=== PATIENT | female | born 2000 | race Two or more races ===

== ENCOUNTER 2024-05-13 10:12 | Emergency (ER) | payer OTHER ==
[~2024-05-13] VITALS: Ht 149.9 cm; Wt 72.6 kg
[2024-05-13] MEDS ORDERED: PRENATAL + DHA1 EAC1 (10:38)
[2024-05-13] MEDS ORDERED: 0.9 % SODIUM CHLORIDE 1,000 ML IV ONE (11:30)
[2024-05-13] MEDS ORDERED: FAMOtidine 10 MG/ML (4ML VIAL) IV ONE (11:30)
[2024-05-13] MEDS ORDERED: ONDANSETRON HCL 2 MG/ML VIAL IV ONE (11:30)
[2024-05-13] MEDS ORDERED: FAMOTIDINE/PF 20 MG/2 ML VIAL ONE (11:35)
[2024-05-13] MEDS ORDERED: ONDANSETRON HCL 2 MG/ML VIAL ONE (11:35)
[2024-05-13 12:08] LABS: HEMATOCRIT 38.4 % (36.0-45.00); HEMOGLOBIN 12.9 g/dL (12.0-15.00); MEAN CELL VOLUME 93.2 fL (80.00-100.00); MEAN CORPUSCULAR HEMOGLOBIN 31.2 pg (27.00-32.0); MEAN CORPUSCULAR HGB CONC 33.4 g/dl (32.0-36.0); PLATELET COUNT 229 K/uL (150-450); RED BLOOD COUNT 4.13 M/uL (4.00-6.00); RED CELL DISTRIBUTION WIDTH 12.6 % (11.5-14.5)
[2024-05-13 13:23] LABS: ALBUMIN 3.6 gm/dL (3.4-5.0); BILIRUBIN TOTAL 0.44 mg/dL (0.3-1.2); CREATININE SERUM 0.49 mg/dL (0.55-1.02); GFR 156.5; GLOBULINA 3.6 G/DL (2.4-3.5); POTASSIUM 4.29 mEq/L (3.5-5.1); TOTAL PROTEIN 7.2 gm/dL (6.4-8.2)
[2024-05-13 13:39] LABS: PH,URINE 5.5 (5.0-8.0); URINE APPEARANCE Clear; URINE BILIRRUBIN Negative (NEGATIVE); URINE BLOOD Negative; URINE COLOR Yellow; URINE GLUCOSE Negative (NEGATIVE); URINE KETONE Trace (NEGATIVE); URINE LEUKOCYTE Trace; URINE NITRATE Negative; URINE PROTEIN Negative (NEGATIVE); URINE UROBILINOGEN 0.2 E.U./dl
[2024-05-13 13:43] LABS: URINE BACTERIA 805.3 uL (0.0-1933); URINE RBC 54.9 uL (0.0-20.8); URINE WBC 15.9 uL (0.0-23.2)
[2024-05-13] MEDS ORDERED: AMOX1TAB5 PO (14:36)
[2024-05-13] MEDS ORDERED: ZOFRAN8 MG PO (14:36)
[2024-05-13] MEDS ORDERED: PEPCID AC20 MG PO (14:36)
== END 2024-05-13 15:28 | disposition home or self-care (01) ==
LOC: ER 10:15
PROVIDERS: General Practice
DX: O23.41 Unspecified infection of urinary tract in pregnancy, first trimester (principal); N39.0 Urinary tract infection, site not specified; O99.611 Diseases of the digestive system complicating pregnancy, first trimester; R19.7 Diarrhea, unspecified; K92.89 Other specified diseases of the digestive system; Z3A.09 9 weeks gestation of pregnancy

== ENCOUNTER 2024-06-03 13:39 | Outpatient (CLI) | payer OTHER ==
[~2024-06-03 13:39] MED LIST: AMOX1TAB5 PO; PEPCID AC20 MG PO; PRENATAL + DHA1 EAC1; ZOFRAN8 MG PO
== END 2024-06-03 13:40 | disposition home or self-care (01) ==
LOC: PRENATAL 13:39
PROVIDERS: ATTEND Obstetrics & Gynecology Maternal & Fetal Medicine
DX: O26.849 Uterine size-date discrepancy, unspecified trimester (principal); O36.8199 Decreased fetal movements, unspecified trimester, other fetus; Z3A.32 32 weeks gestation of pregnancy

== ENCOUNTER 2024-07-17 17:34 | Emergency (ER) | payer OTHER ==
[~2024-07-17] VITALS: Ht 149.9 cm; Wt 76.2 kg
[2024-07-17 21:07] LABS: HEMATOCRIT 35.1 % (36.0-45.00); HEMOGLOBIN 12.3 g/dL (12.0-15.00); MEAN CELL VOLUME 91.9 fL (80.00-100.00); MEAN CORPUSCULAR HEMOGLOBIN 32.1 pg (27.00-32.0); PLATELET COUNT 201 K/uL (150-450); RED BLOOD COUNT 3.82 M/uL (4.00-6.00)
[2024-07-17 22:18] LABS: PH,URINE 6.5 (5.0-8.0); URINE APPEARANCE Clear; URINE BILIRRUBIN Negative (NEGATIVE); URINE BLOOD NHT; URINE COLOR Yellow; URINE GLUCOSE Negative (NEGATIVE); URINE KETONE Negative (NEGATIVE); URINE LEUKOCYTE Trace; URINE NITRATE Negative; URINE PROTEIN Negative (NEGATIVE); URINE UROBILINOGEN 0.2 E.U./dl
[2024-07-17 22:19] LABS: URINE BACTERIA 2873.7 uL (0.0-1933); URINE EPITHELIAL CELLS 24.6 uL (0.0-38.8); URINE RBC 15.6 uL (0.0-20.8); URINE WBC 41.3 uL (0.0-23.2)
[2024-07-17] MEDS ORDERED: MACROBID 100 M100 MG PO (22:37)
== END 2024-07-17 22:53 ==
LOC: ER 17:35
PROVIDERS: Emergency Medicine
DX: O20.9 Hemorrhage in early pregnancy, unspecified (principal); O23.42 Unspecified infection of urinary tract in pregnancy, second trimester; N39.0 Urinary tract infection, site not specified; Z3A.18 18 weeks gestation of pregnancy

== ENCOUNTER 2024-07-28 09:27 | Outpatient (CLI) | payer OTHER ==
[~2024-07-28 09:27] MED LIST changes: +MACROBID 100 M100 MG PO
== END 2024-07-28 09:28 | disposition home or self-care (01) ==
LOC: PRENATAL 09:27
PROVIDERS: ATTEND Obstetrics & Gynecology Maternal & Fetal Medicine
DX: O44.00 Complete placenta previa NOS or without hemorrhage, unspecified trimester (principal); Z3A.21 21 weeks gestation of pregnancy

== ENCOUNTER → 2024-08-20 08:49 | Outpatient (CLI) | payer OTHER | END | disposition home or self-care (01) | LOC: PRENATAL 08:49 | PROVIDERS: ATTEND Obstetrics & Gynecology Maternal & Fetal Medicine | DX: O26.849 Uterine size-date discrepancy, unspecified trimester (principal); O26.879 Cervical shortening, unspecified trimester; Z3A.24 24 weeks gestation of pregnancy ==

== ENCOUNTER → 2024-09-23 14:27 | Outpatient (CLI) | payer OTHER | END | disposition home or self-care (01) | LOC: PRENATAL 14:27 | PROVIDERS: ATTEND Obstetrics & Gynecology Maternal & Fetal Medicine | DX: O26.849 Uterine size-date discrepancy, unspecified trimester (principal); O26.879 Cervical shortening, unspecified trimester; Z3A.28 28 weeks gestation of pregnancy ==

== ENCOUNTER 2024-11-04 15:13 | Outpatient (CLI) | payer OTHER | END 2024-11-04 15:14 | disposition home or self-care (01) | LOC: PRENATAL 15:13 | PROVIDERS: ATTEND Obstetrics & Gynecology Maternal & Fetal Medicine | DX: O26.849 Uterine size-date discrepancy, unspecified trimester (principal); O36.8199 Decreased fetal movements, unspecified trimester, other fetus; O26.879 Cervical shortening, unspecified trimester; Z3A.33 33 weeks gestation of pregnancy ==

== ENCOUNTER 2024-11-14 01:22 | Inpatient (IN) | payer OTHER ==
[2024-11-14] VITALS (7 sets, daily range): BP systolic 117–1442; BP diastolic 80–97; O2SAT 97–100
[~2024-11-14] VITALS: Ht 162.6 cm; Wt 86.2 kg
[2024-11-14] MEDS ORDERED: MAGNESIUM SULFATE IN WATER 100 ML IV ONE (01:30)
[2024-11-14] MEDS ORDERED: MAGNESIUM SULFATE IN WATER 500 ML IV SCH (01:30)
[2024-11-14] MEDS ORDERED: RINGERS SOLUTION,LACTATED 1,000 ML IV SCH (01:30)
[2024-11-14] MEDS ORDERED: MAGNESIUM SULFATE IN WATER 4 GM/100 ML PIGGYBACK IV ONE (01:47)
[2024-11-14] MEDS ORDERED: MAGNESIUM SULFATE IN WATER 0.04 GM/ML IV.SOLN IV ONE (01:47)
[2024-11-14 02:13] LABS: BASO % 0.2 % (0.1-1.2); EOS # 0.09 (0.04-0.54); EOS % 1.0 % (0.7-7.0); LYMPH # 2.12 (1.18-3.74); LYMPH % 23.8 % (19.3-53.1); MONO # 0.94 (0.24-0.82); MONO % 10.6 % (4.7-12.5); NEUT # 5.70 (1.56-6.13); NEUT % 64.1 % (34.0-71.1); RED CELL DISTRIBUTION WIDTH 12.9 % (11.6-14.4)
[2024-11-14 02:15] LABS: URINE APPEARANCE Clear; URINE BILIRRUBIN Negative (NEGATIVE); URINE BLOOD Negative; URINE COLOR Yellow; URINE GLUCOSE Negative (NEGATIVE); URINE KETONE Negative (NEGATIVE); URINE LEUKOCYTE Small; URINE NITRATE Negative; URINE PROTEIN Negative (NEGATIVE); URINE UROBILINOGEN 1.0 E.U./dl
[2024-11-14 02:18] LABS: URINE BACTERIA 1310.3 uL (0.0-1933); URINE EPITHELIAL CELLS 25.0 uL (0.0-38.8); URINE RBC 27.4 uL (0.0-20.8); URINE WBC 47.9 uL (0.0-23.2)
[2024-11-14 02:27] LABS: URINE CAST 0.14 uL (0.0-1.40)
[2024-11-14 02:35] LABS: INR < 0.93
[2024-11-14 02:37] LABS: ALT/SGPT 26.0 U/L (12-78); AST/SGOT 20.0 U/L (15-37); BILIRUBIN TOTAL 0.2 mg/dL (0.3-1.2); BUN CREA RATIO 11.0 (7.0-25.0); CREATININE SERUM 0.62 mg/dL (0.55-1.02); GFR 119.28; GLOBULINA 3.4 G/DL (2.4-3.5); GLUCOSE FASTING 83.0 mg/dL (65-100); OSMOLALITY SERUM 280.0 MOSM/KG (275-295)
[2024-11-14] MEDS ORDERED: BETAMETHASONE ACETATE,SOD PHOS 30 MG/5 ML ML ONE (06:00)
[2024-11-14] MEDS ORDERED: BETAMETHASONE ACETATE,SOD PHOS 30 MG/5 ML ML IM ONE (06:00)
[2024-11-15 04:40] VITALS: BP 130/84
[2024-11-15] MEDS ORDERED: BETAMETHASONE ACETATE,SOD PHOS 30 MG/5 ML ML IM NR (06:00)
[2024-11-15 07:41] VITALS: BP 143/90
[2024-11-15 09:50] LABS: CREATININE URINE 63.0 MG/DL; URINE PROT QUANT 24HR 9.1 MG/DL
[2024-11-15 09:58] LABS: URINE PROT QUANT 24 HR 138.78 MG/24HR (42-225)
[2024-11-15 09:59] LABS: CREATINE CLEARANCE 123.8 ML/MIN (97-137); CREATININE SERUM 0.54 mg/dL (0.6-1.0)
[2024-11-15 11:10] VITALS: BP 132/84
[2024-11-15] MEDS ORDERED: ACETAMINOPHEN 500 MG GEL..CAP PO ONE ×2 (14:46→15:00)
[2024-11-15 15:20] VITALS: BP 119/74
[2024-11-15 20:00] VITALS: BP 119/69
[2024-11-15 23:05] VITALS: BP 128/74; O2SAT 98
[2024-11-16 04:20] VITALS: BP 128/86
[2024-11-16 07:22] VITALS: BP 137/85; O2SAT 99
[2024-11-16 10:59] VITALS: BP 143/85; O2SAT 99
[2024-11-16 15:12] VITALS: BP 123/78
[2024-11-16 16:22] LABS: URINE APPEARANCE Clear; URINE BILIRRUBIN Negative (NEGATIVE); URINE BLOOD Negative; URINE COLOR Yellow; URINE GLUCOSE Negative (NEGATIVE); URINE KETONE Negative (NEGATIVE); URINE LEUKOCYTE Moderate; URINE NITRATE Negative; URINE PROTEIN Negative (NEGATIVE); URINE UROBILINOGEN 0.2 E.U./dl
[2024-11-16 16:25] LABS: URINE BACTERIA 3076.8 uL (0.0-1933); URINE EPITHELIAL CELLS 41.0 uL (0.0-38.8); URINE RBC 14.3 uL (0.0-20.8); URINE WBC 54.9 uL (0.0-23.2)
[2024-11-16 16:27] LABS: BASO % 0.2 % (0.1-1.2); EOS # 0.02 (0.04-0.54); EOS % 0.2 % (0.7-7.0); LYMPH # 2.00 (1.18-3.74); LYMPH % 15.9 % (19.3-53.1); MONO # 1.60 (0.24-0.82); NEUT # 8.78 (1.56-6.13); NEUT % 69.7 % (34.0-71.1); RED CELL DISTRIBUTION WIDTH 13.1 % (11.6-14.4)
[2024-11-16 16:33] LABS: URINE CAST 0.14 uL (0.0-1.40)
[2024-11-16 16:45] LABS: MONO % 12.7 % (4.7-12.5)
[2024-11-16 17:18] LABS: ALT/SGPT 28 U/L (12-78); AST/SGOT 18 U/L (15-37)
[2024-11-16 20:21] VITALS: BP 160/110
[2024-11-16 21:09] VITALS: BP 150/101
[2024-11-16] MEDS ORDERED: LABETALOL HCL 100 MG TABLET PO STA (23:32)
[2024-11-17] VITALS (17 sets, daily range): BP systolic 128–180; BP diastolic 82–110; O2SAT 99–100
[2024-11-17] MEDS ORDERED: LABETALOL HCL 100 MG TABLET PO SCH (09:00)
[2024-11-17] MEDS ORDERED: CITRIC ACID/SODIUM CITRATE 30 ML BLIST.PACK PO STA (13:44)
[2024-11-17] MEDS ORDERED: FAMOTIDINE/PF 20 MG/2 ML VIAL IV SCH (13:45)
[2024-11-17] MEDS ORDERED: LABETALOL HCL 100 MG/20 ML ML ONE ×3 (15:04→15:59)
[2024-11-17] MEDS ORDERED: LABETALOL HCL 100 MG TABLET PO ONE (15:58)
[2024-11-17] MEDS ORDERED: LABETALOL HCL 100 MG/20 ML ML IV PUSH STA ×3 (15:58→16:14)
[2024-11-17] MEDS ORDERED: MAGNESIUM SULFATE IN WATER 4 GM/100 ML PIGGYBACK IV ONE (15:58)
[2024-11-17] MEDS ORDERED: MAGNESIUM SULFATE IN WATER 0.04 GM/ML IV.SOLN IV ONE (15:59)
[2024-11-17] MEDS ORDERED: SODIUM CHLORIDE 0.45 % 1,000 ML IV SCH (16:00)
[2024-11-17 16:06] LABS: URINE APPEARANCE Clear; URINE BILIRRUBIN Negative (NEGATIVE); URINE BLOOD Negative; URINE COLOR Yellow; URINE GLUCOSE Negative (NEGATIVE); URINE KETONE Negative (NEGATIVE); URINE LEUKOCYTE Moderate; URINE NITRATE Negative; URINE PROTEIN Negative (NEGATIVE); URINE UROBILINOGEN 0.2 E.U./dl
[2024-11-17 16:10] LABS: URINE BACTERIA 3801.3 uL (0.0-1933); URINE EPITHELIAL CELLS 34.3 uL (0.0-38.8); URINE RBC 57.7 uL (0.0-20.8); URINE WBC 99.3 uL (0.0-23.2)
[2024-11-17 16:15] LABS: BASO % 0.3 % (0.1-1.2); EOS # 0.02 (0.04-0.54); EOS % 0.2 % (0.7-7.0); LYMPH # 2.36 (1.18-3.74); LYMPH % 18.4 % (19.3-53.1); MONO # 2.19 (0.24-0.82); NEUT # 8.09 (1.56-6.13); NEUT % 62.9 % (34.0-71.1); RED CELL DISTRIBUTION WIDTH 13.1 % (11.6-14.4)
[2024-11-17] MEDS ORDERED: MAGNESIUM SULFATE IN WATER 4 GM/100 ML PIGGYBACK IV SCH (16:15)
[2024-11-17] MEDS ORDERED: MAGNESIUM SULFATE IN WATER 500 ML IV SCH (16:15)
[2024-11-17 16:18] LABS: MONO % 17.0 % (4.7-12.5)
[2024-11-17 16:38] LABS: TYPE CELLS SQUAMOUS; URINE CAST 0.73 uL (0.0-1.40)
[2024-11-17] MEDS ORDERED: LABETALOL HCL 200 MG/40 ML VIAL IV SCH (17:00)
[2024-11-17] MEDS ORDERED: LABETALOL HCL 200 MG TABLET PO SCH (17:00)
[2024-11-17 17:01] LABS: ALT/SGPT 30 U/L (12-78); AST/SGOT 18 U/L (15-37)
[2024-11-17 17:56] LABS: CREATININE URINE RANDOM < 13.00 MG/DL (30-125)
[2024-11-17] MEDS ORDERED: ERYTHROMYCIN BASE OPHT 1GM EACH TUBE OP ONE ×2 (21:59→22:15)
[2024-11-17] MEDS ORDERED: OXYTOCIN 10 UNITS/ML VIAL ONE (21:59)
[2024-11-17] MEDS ORDERED: OXYTOCIN 10 UNITS/ML VIAL IV ONE (22:15)
[2024-11-17] MEDS ORDERED: CEFAZOLIN SODIUM 1,000 MG VIAL IV ONE (23:45)
[2024-11-18] MEDS ORDERED: KETOROLAC TROMETHAMINE 60 MG VIAL IM STA (00:28)
[2024-11-18] MEDS ORDERED: SODIUM CHLORIDE 0.45 % 1,000 ML IV SCH (00:30)
[2024-11-18] MEDS ORDERED: OXYTOCIN 1,000 ML IV SCH (00:30)
[2024-11-18] MEDS ORDERED: CHLORHEXIDINE GLUCONATE 120 ML BOTTLE TP SCH (00:30)
[2024-11-18] MEDS ORDERED: MORPHINE SULFATE 4 MG/ML CARTRIDGE IV PRN (00:45)
[2024-11-18] MEDS ORDERED: MORPHINE SULFATE 4 MG/ML VIAL IV ONE ×2 (00:45→01:15)
[2024-11-18] MEDS ORDERED: MAGNESIUM SULFATE IN WATER 0.04 GM/ML IV.SOLN IV ONE (01:26)
[2024-11-18] MEDS ORDERED: LABETALOL HCL 100 MG/20 ML ML ONE (01:26)
[2024-11-18] MEDS ORDERED: LABETALOL HCL 100 MG/20 ML ML IV PUSH ONE (02:00)
[2024-11-18 03:00] VITALS: BP 157/98
[2024-11-18] MEDS ORDERED: LABETALOL HCL 100 MG/20 ML ML IV STA (03:21)
[2024-11-18 03:27] LABS: BASO % 0.3 % (0.1-1.2); EOS # 0.03 (0.04-0.54); EOS % 0.2 % (0.7-7.0); LYMPH # 2.30 (1.18-3.74); LYMPH % 11.9 % (19.3-53.1); MONO # 2.24 (0.24-0.82); MONO % 11.6 % (4.7-12.5); NEUT # 14.59 (1.56-6.13); NEUT % 75.3 % (34.0-71.1); RED CELL DISTRIBUTION WIDTH 12.7 % (11.6-14.4)
[2024-11-18 06:19] VITALS: BP 160/90; O2SAT 98
[2024-11-18] MEDS ORDERED: OxyCODONE HCL 5 MG TABLET (ROXICODONE) PO PRN (09:00)
[2024-11-18] MEDS ORDERED: ACETAMINOPHEN 325 MG TABLET PO PRN (09:00)
[2024-11-18 11:50] VITALS: BP 112/79
[2024-11-18 15:20] VITALS: BP 147/86
[2024-11-18 20:00] VITALS: BP 142/90
[2024-11-18 23:19] VITALS: BP 128/83
[2024-11-19 06:58] VITALS: BP 140/90; O2SAT 99
[2024-11-19 11:13] VITALS: BP 137/93; O2SAT 99
[2024-11-19 11:54] VITALS: BP 135/94
[2024-11-19 15:20] VITALS: BP 128/90
[2024-11-19 17:13] VITALS: BP 137/90
[2024-11-20 01:37] VITALS: BP 140/96
[2024-11-20 08:19] VITALS: BP 148/90; BP 152/105
[2024-11-20 13:00] VITALS: BP 136/91
[2024-11-20 16:26] VITALS: BP 133/89
[2024-11-20 19:00] VITALS: BP 124/62
[2024-11-21 01:24] VITALS: BP 140/89
[2024-11-21 06:42] VITALS: BP 160/100
[2024-11-21 07:25] VITALS: BP 170/100
[2024-11-21] MEDS ORDERED: LABETALOL HCL 100 MG/20 ML ML IV PUSH NR (07:45)
[2024-11-21] MEDS ORDERED: LABETALOL HCL 100 MG/20 ML ML ONE (08:07)
[2024-11-21 08:10] VITALS: BP 150/100
[2024-11-21] MEDS ORDERED: LABETALOL HCL 100 MG/20 ML ML IV PUSH SCH (08:25)
[2024-11-21 08:47] VITALS: BP 130/90
== END 2024-11-21 15:25 | disposition home or self-care (01) | DRG 787 ==
LOC: OB/GYN 01:22 → LDR 01:22 → OB/GYN 11-16 17:23 → LDR 11-18 01:26 → OB/GYN 11-19 13:31
PROVIDERS: Obstetrics & Gynecology; Specialist; ADMIT Obstetrics & Gynecology; ATTEND Obstetrics & Gynecology
PROC: 4A1HXCZ Monitoring of Products of Conception, Cardiac Rate, External Approach (ICD-10-PCS; 2024-11-14)
PROC: BY4FZZZ Ultrasonography of Third Trimester, Single Fetus (ICD-10-PCS; 2024-11-14)
PROC: 10D00Z1 Extraction of Products of Conception, Low, Open Approach (ICD-10-PCS; principal; 2024-11-18)
DX: O13.4 Gestational [pregnancy-induced] hypertension without significant proteinuria, complicating childbirth (principal); O26.873 Cervical shortening, third trimester; O76 Abnormality in fetal heart rate and rhythm complicating labor and delivery; O60.14X0 Preterm labor third trimester with preterm delivery third trimester, not applicable or unspecified; O36.8330 Maternal care for abnormalities of the fetal heart rate or rhythm, third trimester, not applicable or unspecified; O36.8130 Decreased fetal movements, third trimester, not applicable or unspecified; O26.853 Spotting complicating pregnancy, third trimester; Z3A.36 36 weeks gestation of pregnancy; Z37.0 Single live birth